=== PATIENT | female | born 2000 | race African-American/Black ===

== ENCOUNTER 2023-10-29 14:01 | Emergency (ER) | payer OTHER ==
[2023-10-29 14:11] VITALS: BP 107/66; PULSE 68; RESP 16; TEMP 98.4; BMI 17.9
[2023-10-29] MEDS ORDERED: DOXYCYCLINE HYCLATE 100 MG CAPSULE PO ONE (15:49)
[2023-10-29 15:54] LABS: HCG,QUALITATIVE URINE Negative
[2023-10-29 15:56] LABS: EPI CELLS >36 /uL (0-25.1); HYALINE CASTS 0 /uL (0-3.1); URINE APPEARANCE CLEAR; URINE BACTERIA 579 /uL (0-1359); URINE BILIRUBIN NEGATIVE (NEGATIVE); URINE COLOR YELLOW; URINE GLUCOSE (UA) NEGATIVE (NEGATIVE); URINE KETONE TRACE (NEGATIVE); URINE LEUK ESTERASE 2+ (NEGATIVE); URINE NITRITE NEGATIVE (NEGATIVE); URINE PROTEIN NEGATIVE (NEGATIVE); URINE RBC 18 /uL (0-23.9); URINE WBC 66 /uL (0-25.8)
[2023-10-29] MEDS: DOXYCYCLINE HYCLATE 100 MG CAPSULE PO ONE (16:05)
[2023-10-29 17:17] LABS: HIV INTERPRETATION NEGATIVE (NEGATIVE)
== END 2023-10-29 16:06 | disposition home or self-care (01) ==
LOC: JERFT 14:01 → JER 14:01 → JERFT 16:06
DX: R30.0 Dysuria (principal); N89.8 Other specified noninflammatory disorders of vagina; Z20.2 Contact with and (suspected) exposure to infections with a predominantly sexual mode of transmission
CPT/HCPCS: 36415; 81003; 84703; 86780; 86803; 87389; 87491; 87591; 96372; 99284-25